=== PATIENT | male | born 1945 | race Caucasian/White ===

== ENCOUNTER 2018-12-16 15:40 | Inpatient (IN) | payer OTHER, MEDICARE ==
[~2018-12-16] VITALS: Ht 180.3 cm; Wt 97.1 kg
[~2018-12-16 15:40] MED LIST: Aspirin EC81 MG PO; BACL10 PO; CLON.5; FLUO10; Ketoconazole120 ML TOP; NORT25 PO; NORT50; PRAZ2 PO; RANI150 PO; TRAM50 PO; TRAV.004OP OD
[2018-12-16 16:10] LABS: BASOPHILS ABSOLUTE AUTO 0.06 K/mm3 (0.00-0.23); BASOPHILS PERCENT AUTO 1 % (0-2); EOSINOPHILS ABSOLUTE AUTO 0.15 K/mm3 (0.00-0.68); EOSINOPHILS PERCENT AUTO 2 % (0-6); Hematocrit 44.7 % (37.0-53.0); Hemoglobin 15.1 g/dL (13.5-17.5); IMMATURE GRAN PERCENT AUTO 5 % (0-1); LYMPHOCYTES ABSOLUTE AUTO 2.49 K/mm3 (0.84-5.20); LYMPHOCYTES PERCENT AUTO 32 % (21-46); MONOCYTES ABSOLUTE AUTO 0.87 K/mm3 (0.16-1.47); MONOCYTES PERCENT AUTO 11 % (4-13); Mean Corpuscular HGB Conc 33.8 g/dL (31.5-36.5); Mean Corpuscular Volume 98 fL (80-100); Mean Platelet Volume 10.5 fL (9.1-12.4); NEUTROPHILS ABSOLUTE AUTO 3.89 K/mm3 (1.96-9.15); NEUTROPHILS PERCENT AUTO 49 % (41-73); Platelet Count 223 K/mm3 (150-400); RDW Coefficient Variation 12.4 % (11.7-14.2); RDW Standard Deviation 44.5 fL (35.1-46.3); Red Blood Cell Count 4.57 M/mm3 (4.30-5.90); White Blood Cell Count 7.86 K/mm3 (4.00-11.30)
[2018-12-16 16:30] LABS: Alanine Aminotransfer (ALT/SGP 32 U/L (12-78); Albumin, Blood 3.9 g/dL (3.4-5.0); Alk Phos 82 U/L (50-136); Anion Gap 3 mmol/L (6-16); Aspartate Aminotrans (AST/SGOT 44 U/L (12-37); Bilirubin, Total 0.5 mg/dL (0.1-1.0); Blood Urea Nitrogen 17 mg/dL (8-24); Bun/Creatinine Ratio 17.7 (12.0-20.0); CO2, Blood 27 mmol/L (21-32); Chloride, Blood 108 mmol/L (98-108); Creatinine, Blood 0.96 mg/dL (0.60-1.20); Globulin, Blood 3.8 g/dL (2.2-4.0); Glomerular Filtration Rate >60 (60-); Glucose, Blood 105 mg/dL (70-99); Potassium, Blood 5.2 mmol/L (3.5-5.5); Sodium, Blood 138 mmol/L (136-145); Total Protein, Blood 7.7 g/dL (6.4-8.2)
[2018-12-16] MEDS ORDERED: LUBRICATING PL1 EACH BOTHEYES (18:28)
[2018-12-16] MEDS ORDERED: MELA3 PO (18:29)
[2018-12-16] MEDS ORDERED: LATA.005SO LEFTEYE (18:29)
[2018-12-16] MEDS ORDERED: ARTIFICIAL TEAR15 M1 BOTHEYES (18:29)
[2018-12-16] MEDS ORDERED: MULTI VITAMIN1 EACH PO (18:30)
[2018-12-16] MEDS ORDERED: Naproxen250 MG PO (18:33)
[2018-12-16] MEDS ORDERED: SERT25 PO (18:34)
[2018-12-16] MEDS ORDERED: Ranitidine HCl300 MG PO (18:34)
[2018-12-16] MEDS ORDERED: TRAZ100 PO (18:35)
--- NOTE | 2018-12-16 19:14 | NUR ---
pt to room from ed A&OX4. 02 SATS STABLE ON 2L NC. LUNGS DIM TO AUSCULTATION. CHEST TUBE TO R ANTERIOR CHEST WALL TO WALL SUCTION. DRAINING SS DRAINAGE. PT REPORTED PAIN 3-4 ON PAIN SCALE. CALL LIGHT IN REACH. REPORT GIVEN TO ONCOMING RN.
[2018-12-17 04:38] LABS: BASOPHILS ABSOLUTE AUTO 0.02 K/mm3 (0.00-0.23); BASOPHILS PERCENT AUTO 0 % (0-2); EOSINOPHILS ABSOLUTE AUTO 0.02 K/mm3 (0.00-0.68); EOSINOPHILS PERCENT AUTO 0 % (0-6); Hematocrit 40.4 % (37.0-53.0); Hemoglobin 13.5 g/dL (13.5-17.5); IMMATURE GRAN ABSOLUTE AUTO 0.11 K/mm3 (0.00-0.10); IMMATURE GRAN PERCENT AUTO 1 % (0-1); LYMPHOCYTES ABSOLUTE AUTO 1.28 K/mm3 (0.84-5.20); LYMPHOCYTES PERCENT AUTO 12 % (21-46); MONOCYTES PERCENT AUTO 14 % (4-13); Mean Corpuscular HGB Conc 33.4 g/dL (31.5-36.5); Mean Corpuscular Volume 99 fL (80-100); Mean Platelet Volume 9.8 fL (9.1-12.4); NEUTROPHILS ABSOLUTE AUTO 7.49 K/mm3 (1.96-9.15); NEUTROPHILS PERCENT AUTO 73 % (41-73); Platelet Count 201 K/mm3 (150-400); RDW Coefficient Variation 12.7 % (11.7-14.2); RDW Standard Deviation 45.8 fL (35.1-46.3); Red Blood Cell Count 4.09 M/mm3 (4.30-5.90); White Blood Cell Count 10.32 K/mm3 (4.00-11.30)
[2018-12-17 04:58] LABS: Anion Gap 5 mmol/L (6-16); Blood Urea Nitrogen 15 mg/dL (8-24); Bun/Creatinine Ratio 17.9 (12.0-20.0); CO2, Blood 28 mmol/L (21-32); Calcium, Blood 8.4 mg/dL (8.5-10.1); Chloride, Blood 106 mmol/L (98-108); Creatinine, Blood 0.84 mg/dL (0.60-1.20); Glomerular Filtration Rate >60 (60-); Glucose, Blood 111 mg/dL (70-99); Potassium, Blood 4.4 mmol/L (3.5-5.5); Sodium, Blood 139 mmol/L (136-145)
--- NOTE | 2018-12-17 05:46 | NUR ---
SHIFT SUMMARY PT NEW ADMIT YESTARDAY EVENING. AAOX4. DISCOMFORT CONTROLLED WITH 1MG IV DILAUDID X2 THIS SHIFT. NO NAUSEA/EMESIS. CHEST TUBE TO RIGHT CHEST WELL TO SUCTION, MODERATE AMOUNT SS DRAINAGE OUT. LUNG SOUNDS DIMINISHED T/O WITH SHALLOW BREATHING NOTED ON 2L VIA NC. CONTINUE TO ENCOURAGE DEEP BREATHING + REPOSITIONING TODAY TOLERATED + FLUIDS. PT RESTING WELL AT THIS TIME, NADN, WITH CALL LIGHT IN REACH.
--- NOTE | 2018-12-17 09:02 | NUR ---
PT TO IMAGING, TO WATER-SEAL FOR TRANSPORT PER ORDER.
--- NOTE | 2018-12-17 14:54 | NUR ---
DR CARTY WAS HERE RECENTLY, REPORTED TO PLACE CHEST TUBE TO WATER-SEAL.
--- NOTE | 2018-12-17 16:01 | NUR ---
PT REPORTED INCREASED PAIN AND "GETTING TIGHT". PT CHEST TUBE PLACED BACK TO WALL SUCTION AT SMALL BUBBLE. DR VEGA NOTIFIED. REPORTS TO LEAVE ON WALL SUCTION OVERNIGHT.
--- NOTE | 2018-12-17 17:43 | NUR ---
PT USED BSC THEN BACK TO BED. PT MED FOR PAIN.
--- NOTE | 2018-12-17 17:59 | NUR ---
SHIFT SUMMARY PT TOLERATING C.L.. PT REPORTS PASSING GAS. PT BEEN ASSISTED WITH ADL'S PRN. PT USING CALL LIGHT APPR. PT BEEN MED FOR PAIN. PT WAS UP TO CHAIR THIS AFTERNOON/EVENING. PT CHEST TUBE TO WALL SUCTION PER DR VEGA, BUBBLING AT SLOW BUBBLE, WNL. PT VOIDING. ENC DEEP BREATHING AND SITTING UP IN CHAIR.
--- NOTE | 2018-12-17 18:05 | NUR ---
PAS TO BLE IN PLACE.
--- NOTE | 2018-12-18 06:30 | NUR ---
SHIFT SUMMARY PT RESTED INTERMITTENTLY T/O NIGHT. AAOX4. DISCOMFORT CONTROLLED WITH 2 NORCO Q4P + DILAUDID GIVEN X1 FOR BREAKTHROUGH. NAUSEA CONTROLLED WITH ZOFRAN X1, NO EMESIS. CHEST TUBE TO ANTERIOR RIGHT CHEST WALL SECURE WITH 80cc RED DRAINAGE THIS SHIFT. LUNG SOUND DIMINISED T/O. ON RA, DENIES SOB AT REST. UP TO BED PAIN WITH LARGE AMOUNTS OF FLATUS OUT THIS SHIFT, NO BM. IVF PER ORDERS. PT RESTING WELL AT THIS TIME, NADN, WITH CALL LIGHT IN REACH.
--- NOTE | 2018-12-18 09:55 | NUR ---
PT BEEN TO IMAGING AND BACK EARLIER TODAY. PT CHEST TUBE TO WATER-SEAL. PT TOLERATING WELL.
--- NOTE | 2018-12-18 15:48 | NUR ---
SHIFT SUMMARY PT TOLERATING C.L.. PT VOIDING. PT BEEN ASSISTED WITH ADL'S PRN. PT BEEN GIVEN BED BATH WITH ASSIST. PT BEEN UP TO BSC WITH ASSIST. PT BEEN MED FOR PAIN. PT USING CALL LIGHT APPR. PT CONT TO HAVE CHEST TUBE IN PLACE. PT ON RA AT THIS TIME.
--- NOTE | 2018-12-18 17:53 | NUR ---
DR VEGA HERE TO SEE PT. REPORTS TO GIVE 21OO PEPCID DOSE NOW.
--- NOTE | 2018-12-19 04:41 | NUR ---
SHIFT SUMMARY PT A&0X4 W/VSS AND NO ACUTE CHANGES T/O SHIFT. CHEST TUBE TO RIGHT ANTERIOR CHEST WALL IN PLACE AND SET TO WATER SEAL W/80ML OF SS DRAINAGE. PT DENIES SOB OR DYSPNEA. SPO2 AT 97% ON 2L NC WHILE RESTING. REPORTS PAIN AT TOLERABLE LEVEL, MEDICATED PER EMAR AND REPOSITIONED PRN. UP TO BSC WITH 2 PERSON MODERATE ASSISTANCE. PLAN FOR XRAY THIS MORNING AND CLAMP CHEST TUBE AT 0500 PER ORDER. PT CURRENTLY SLEEPING IN BED WITH CALL LIGHT WITHIN REACH.
--- NOTE | 2018-12-19 06:21 | NUR ---
CHEST TUBE CLAMPED CHEST TUBE CLAMPED AT 0501 TODAY. PT TOLERATING IT WELL WITH EQUAL CHEST EXPANSION AND SPO2 AT 95% ON 2L NC. DENIES SOB OR DYSPNEA. WILL CONT. TO MONITOR.
--- NOTE | 2018-12-19 10:35 | NUR ---
DR. VEGA IN ROOM AT ABOUT 1020. CHEST TUBE REMOVED AT THIS TIME. PT TOLERATED WELL
--- NOTE | 2018-12-19 15:47 | NUR ---
PT IN RADIOLOGY AT THIS TIME FOR CHEST XRAY
--- NOTE | 2018-12-19 18:36 | NUR ---
SUMMARY: NO ACUTE CHANGE TODAY. VSS, A/O. PT HAS DONE WELL WITHOUT CHEST TUBE NO REPORT OF SOB, CHEST PAIN. BREATHS ARE EVEN AND UNLABORED. MEDICATED FOR PAIN PRN. PT HAS HARD TIME WITH MOBILITY TODAY, 2 ASSIST TO GET UP. VERY STIFF AND PAINFUL, ORDER FOR PT ADDED. DEEP BREATHE AND I.S. ENCOURAGED. ABLE TO WEAN OFF 02 TODAY, PT IS AT 96% ON RA. PLAN TO REPEAT CHEST XRAY IN AM. WILL PASS REPORT TO NOC RN
--- NOTE | 2018-12-20 06:01 | NUR ---
SHIFT SUMMARY PT AA0X4, VSS. PATIENT MEDICATED FOR PAIN PER EMAR. PAIN LOCATED IN RIBS AND RIGHT SHOULDER. PATIENT REPOSITIONING SELF IN BED. DENIES SOB OR DYSPNEA. BULKY DRESSING IN PLACE OVER CHEST TUBE REMOVAL SITE, CDI.
[2018-12-20 14:11] LABS: Mean Platelet Volume 9.8 fL (9.1-12.4); Platelet Count 197 K/mm3 (150-400)
--- NOTE | 2018-12-20 14:52 | NUR ---
PT RESTING COMFORTABLY IN BED. DENIES ANY NEEDS AT THIS TIME. CALL LIGHT IN REACH.
--- NOTE | 2018-12-20 15:05 | NUR ---
PT TO DAY SURGERY VIA HOSPITAL BED
--- NOTE | 2018-12-20 15:15 | NUR ---
INTO SDS VIA BED. NPO STATUS CONFIRMED. HISTORY AND ALLERGIES REVIEWED. DR. DURAN AT BEDSIDE. INFORMED CONSENT OBTAINED FOR EPIDURAL.
--- NOTE | 2018-12-20 16:29 | NUR ---
EPIDURAL CATHETER PLACED BY DR. DURAN. PT MED WITH TOTAL OF 150 MCG OF FENTANYL AND 3 MG VERSED IVP FOR PROCEDURE. EPIDURAL TEST INJECTION GIVEN BY DR. DURAN @ 8622. PT TOLERATED WELL. SEE RHYTHM STRIP RECORD FOR FREQUENT VS. FENTANYL AND BUPIVICAINE CONTINUOUS VIA EPIDURAL CATHETER INITIATED @ 1602. SEE EMAR. SBP TRENDING 90'S. HR 50'S. SATS>90% ON 2 LITERS NASAL CANULA. PT REPORTS THAT HE IS NO LONGER IN PAIN AT THIS TIME. REPORT PHONED TO HERI REYNA -PT TRANSFERED TO ROOM 224 VIA BED.
--- NOTE | 2018-12-20 16:45 | NUR ---
POST OP PT ARRIVES IN HOSPITAL BED. EPIDURAL IN PLACE. DENIES PAIN. RESP EVEN, CLEAR LUNGS, SLIGHTLY DIM IN BASES. WIGGLES TOES, PPP. DISCUSSED RISK OF URINARY RETENTION WITH POLYGRAPH OPERATOR SURGEON DUE TO ANESTIOLOGIST NOT AVAILABLE.
--- NOTE | 2018-12-21 03:28 | NUR ---
SHIFT SUMMARY RIB FX WITH R SIDED PNEUMOTHORAX. PT AA0X4, VSS. BULKY DRESSING OVER TUBE REMOVAL SITE ON UPPER RIGHT CHEST CDI. LUNG SOUNDS CLEAR BILATERALLY. PT ABLE TO TAKE DEEP BREATHS. DENIES PAIN DURING SHIFT WITH EPIDURAL. PATIENT REPORTS SENSATION THROUGHOUT. NUMBNESS EARLY IN SHIFT BETWEEN UPPER CHEST AND UPPER THIGH. PATIENT ABLE TO VOID. HAS BEEN USING URINAL. REPOSITIONS SELF IN BED AND TOLERATING PO WELL.
--- NOTE | 2018-12-21 17:53 | NUR ---
SUMMARY PATIENT REPORTS GOOD PAIN CONTROL WITH EPIDURAL. PATIENT BRIEFLY WITH 7/10 PAIN AFTER BATH AND GETTING OOB BUT REPORTS BASELINE PAIN LEVEL OF 2-3 HAS BEEN TYPICAL THROUGHOUT SHIFT. PATIENT WITH SOME SLIGHT DECREASED SENSATION T4-T9 WHICH HAS NOT CHANGED THROUGHOUT SHIFT. PATIENT VOIDING WITHOUT DIFFICULTY. ROCIO PO FOOD AND FLUIDS
--- NOTE | 2018-12-22 05:16 | NUR ---
SHIFT SUMMARY PT HAS BEEN BEDREST THIS SHIFT. MOVES SELF IN BED, USES URINAL. PAIN MANAGED WITH EPIDURAL. PT A/O X4, USES CALL LIGHT NEEDED. PT HAS BEEN RESTING QUIETLY MOST OF THE NIGHT.
--- NOTE | 2018-12-22 16:24 | NUR ---
PT TO IMAGING. PT TOLERATED GETTING SELF TO GURNEY WITH SBA.
--- NOTE | 2018-12-22 17:08 | NUR ---
SHIFT SUMMARY PT EATING AND DRINKING. PT ASSISTED WITH ADL'S PRN. PT UP TO CHAIR THIS AFTERNOON AFTER PT WAS TO IMAGING FOR XRAY. PT WAS GIVEN BED BATH THIS AFTERNOON. PT BEEN REPOSITIONED. PT ENC TO HAVE BOWEL CARE. PT REFUSING TO HAVE PRUNE JUICE. PT DID TAKE COLACE AND MIRALAX AND APPLE JUICE. REFUSING TO HAVE OTHER MEASURES, SUPPOSITORY OR ENEMA. PT HAS EPIDURAL IN PLACE. PT VOIDING AND PASSING GAS.
--- NOTE | 2018-12-23 05:59 | NUR ---
SHIFT SUMMARY: PENELOPE HAD HIS CHEST TUBE REMOVED 12/19/18. HE HAS AN EPIDURAL WHICH HE REPORTS IS PROVIDING GOOD PAIN CONTROL. HE IS USING THE URINAL WITHOUT DIFFICULTIES. HE IS TOLERATING PO INTAKE WELL. HE IS ABLE TO ADJUST HIS POSITION IN BED. HE HAS NOT HAD A BOWEL MOVEMENT THIS SHIFT. HE RESTED COMFORTABLY THROUGH MOST OF THE NIGHT. HE IS A&OX4. HE IS LYING IN BED WITH HIS CALL LIGHT IN REACH.
--- NOTE | 2018-12-23 09:54 | NUR ---
DR. DURAN ANESTHESIA DC'D EPIDURAL AT APPROX 5637.
--- NOTE | 2018-12-23 10:07 | NUR ---
[id number] DR DURAN HERE AND DC'D PATIENTS EPIDURAL, CATHETER INTACT
--- NOTE | 2018-12-23 15:31 | NUR ---
PATIENT REPORTS PAIN IS STAYING AT SAME LEVEL AFTER EPIDURAL REMOVED. PT DOZES WHEN LEFT UNDISTURBED. REPORT GIVEN TO TURNER CURTIS RN
--- NOTE | 2018-12-23 18:54 | NUR ---
dr galvan called ok to send urine for ua pt having cloudy urine with last 2 voids pt also reported lower pelvic pain
[2018-12-24 05:43] LABS: Source, Urine Clean Catch
[2018-12-24 05:46] LABS: Bilirubin, Urine Neg (Neg); Blood, Urine 3+ (Neg); Glucose Qualitative, Urine Neg (Neg); Ketones, Urine Neg (Neg); Leukocyte Esterase, Urine 3+ (Neg); Nitrite, Urine Pos (Neg); Protein, Urine 2+ (Neg); Specific Gravity, Urine 1.015 (1.003-1.022); Urobilinogen, Urine NORM (Normal)
[2018-12-24 05:58] LABS: Appearance, Urine Cloudy (Clear); Color, Urine Yellow (P-Yellow); White Blood Cells, Urine TNTC /hpf (0-5)
[2018-12-24 05:59] LABS: Bacteria Many /hpf; Squamous Epithelial Cells Not Seen /hpf (Few)
--- NOTE | 2018-12-24 07:41 | NUR ---
SUMMARY ASSUMED CARE OF PT @ 2400. PT APPEARING SLEEPING OFF AND ON TONIGHT. THIS AM WHEN MEDICATED PO FOR PAIN, PT STATED HE DID NOT SLEEPP MOST OF NIGHT. STATES WAS RESTING ON BED WITH EYES CLOSED BUT STATES DID NOT HEAR NURSES ENTER ROOM. ENCOURAGED TO CALL IF NOT SLEEPIG FOR NURSING CARE AND ASSIST FOR SLEEP. PT C/O R FLANK PAIN. REPORTS CHRONIC URINARY INFECTION. U/A OBTAINED PER DR ORDER.OFF GOING NURSE REPORTED DR WILL FOLLOW UP WITH U/A RESULTS AND ORDER ANTIBIOTIC IF +. PT URINE CLOUDY AND STRONGLY FOUL ODORED.ALTHOUGH, DENIES BURNING WITH URINATION.
--- NOTE | 2018-12-24 13:29 | NUR ---
DISCHARGE REPORT CALLED TO JÚNIOR AT [facility]. PT ALERT AND ORIENTED AT TIME OF DICHARGE. TRANSPORTED IN W/C.
== END 2018-12-24 13:15 | disposition home or self-care (01) | DRG 200 ==
LOC: ER 15:40 → SURS 16:20
PROVIDERS: Anesthesiology; Emergency Medicine; Surgery; ADMIT Surgery
PROC: 0W9900Z Drainage of Right Pleural Cavity with Drainage Device, Open Approach (ICD-10-PCS; principal; 2018-12-16)
DX: S27.2XXA Traumatic hemopneumothorax, initial encounter (principal); S32.019A Unspecified fracture of first lumbar vertebra, initial encounter for closed fracture; S32.029A Unspecified fracture of second lumbar vertebra, initial encounter for closed fracture; S32.039A Unspecified fracture of third lumbar vertebra, initial encounter for closed fracture; S32.049A Unspecified fracture of fourth lumbar vertebra, initial encounter for closed fracture; S22.41XA Multiple fractures of ribs, right side, initial encounter for closed fracture; N39.0 Urinary tract infection, site not specified; F43.10 Post-traumatic stress disorder, unspecified; K21.9 Gastro-esophageal reflux disease without esophagitis; W11.XXXA Fall on and from ladder, initial encounter; Y93.9 Activity, unspecified; Y92.9 Unspecified place or not applicable
CPT/HCPCS: 32551; 36415; 70450; 71045; 71046; 71260; 72125; 74177; 80048; 80053; 81001; 85025; 85049; 87077; 87086; 87186; 90471; 90714; 94762; 96374-59; 96376-59; 97110; 97162; 97530; 99285-25; A9270-GY; J1170; J1650; J1885; J2250; J2405; J2704; J3010; J7030; J7120; Q9967

== ENCOUNTER → 2020-11-29 | Outpatient (CLI) | payer OTHER, MEDICARE ==
[~2020-11-29] MED LIST changes: +ARTIFICIAL TEAR15 M1 BOTHEYES; +LATA.005SO LEFTEYE; +LUBRICATING PL1 EACH BOTHEYES; +MELA3 PO; +MULTI VITAMIN1 EACH PO; +Naproxen250 MG PO; +Ranitidine HCl300 MG PO; +SERT25 PO; +TRAZ100 PO
== END | disposition home or self-care (01) ==
LOC: LAB 10:45 → LAB SHORT 10:45
DX: R82.90 Unspecified abnormal findings in urine (principal)
CPT/HCPCS: 87077; 87086; 87186

== ENCOUNTER → 2021-08-04 | Outpatient (CLI) | payer OTHER | END | disposition home or self-care (01) | LOC: LAB SHORT 13:38 → LAB 13:38 | DX: R10.9 Unspecified abdominal pain (principal) | CPT/HCPCS: 87077; 87086; 87186 ==

== ENCOUNTER → 2021-12-09 | Outpatient (CLI) | payer OTHER | LOC: LAB SHORT 13:32 → LAB 13:32 | DX: M54.50 Low back pain, unspecified (principal) | CPT/HCPCS: 87077; 87086; 87186 ==

== ENCOUNTER → 2022-01-23 | Outpatient (CLI) | payer OTHER | END | disposition home or self-care (01) | LOC: LAB 14:50 → LAB SHORT 14:50 | DX: N39.0 Urinary tract infection, site not specified (principal) | CPT/HCPCS: 87077; 87086; 87186 ==

== ENCOUNTER 2024-08-06 15:10 | Emergency (ER) | payer OTHER ==
[~2024-08-06] VITALS: Ht 175.3 cm; Wt 99.8 kg
[2024-08-06 15:42] LABS: Source, Urine Clean Catch
[2024-08-06] MEDS ORDERED: Ondansetron HCl 2 MG / ML 2ML Vial IV ONE (15:45)
[2024-08-06 15:49] LABS: BASOPHILS ABSOLUTE AUTO 0.02 K/mm3 (0.00-0.23); BASOPHILS PERCENT AUTO 0 % (0-2); EOSINOPHILS PERCENT AUTO 0 % (0-6); Hematocrit 42.6 % (37.0-53.0); IMMATURE GRAN ABSOLUTE AUTO 0.04 K/mm3 (0.00-0.10); IMMATURE GRAN PERCENT AUTO 0 % (0-1); LYMPHOCYTES ABSOLUTE AUTO 0.88 K/mm3 (0.84-5.20); LYMPHOCYTES PERCENT AUTO 9 % (21-46); MONOCYTES ABSOLUTE AUTO 0.44 K/mm3 (0.16-1.47); MONOCYTES PERCENT AUTO 5 % (4-13); Mean Corpuscular HGB 32.2 pg (26.0-34.0); Mean Corpuscular HGB Conc 35.2 g/dL (31.5-36.5); Mean Corpuscular Volume 91 fL (80-100); Mean Platelet Volume 10.5 fL (9.1-12.4); NEUTROPHILS ABSOLUTE AUTO 8.31 K/mm3 (1.96-9.15); NEUTROPHILS PERCENT AUTO 86 % (41-73); Platelet Count 165 K/mm3 (150-400); RDW Coefficient Variation 12.5 % (11.7-14.2); RDW Standard Deviation 42.1 fL (35.1-46.3); Red Blood Cell Count 4.66 M/mm3 (4.30-5.90); White Blood Cell Count 9.69 K/mm3 (4.00-11.30)
[2024-08-06 15:55] LABS: Bilirubin, Urine Neg (Neg); Blood, Urine Neg (Neg); Glucose Qualitative, Urine Neg (Neg); Ketones, Urine 3+ (Neg); Leukocyte Esterase, Urine 1+ (Neg); Nitrite, Urine Neg (Neg); Protein, Urine 1+ (Neg); Specific Gravity, Urine 1.015 (1.003-1.022); Urobilinogen, Urine NORM (Normal)
[2024-08-06 16:16] LABS: Albumin, Blood 3.9 g/dL (3.4-5.0); Albumin/Globulin Ratio 1.3 (0.8-1.8); Bilirubin, Total 0.9 mg/dL (0.1-1.0); Calcium, Blood 8.9 mg/dL (8.5-10.1); Creatinine, Blood 0.7 mg/dL (0.60-1.20); Potassium, Blood 3.9 mmol/L (3.5-5.5); Total Protein, Blood 6.9 g/dL (6.4-8.2)
[2024-08-06 16:23] LABS: Appearance, Urine Hazy (Clear); Color, Urine Yellow (P-Yellow)
[2024-08-06 16:24] LABS: Amorphous Light (0-Heavy); Bacteria Mod /hpf; Mucus Mod (0-Heavy); Red Blood Cells, Urine 0-2 /hpf (0-2); Squamous Epithelial Cells Few /hpf (Few)
[2024-08-06] MEDS ORDERED: NS 1,000 ML IV SCH (16:25)
[2024-08-06 19:14] VITALS: BP 122/77
[2024-08-06] MEDS ORDERED: Meclizine HCl 25 MG Tab PO ONE (19:30)
[2024-08-06] MEDS ORDERED: Omeprazole 20 MG CapCR PO ONE (19:30)
[2024-08-06] MEDS ORDERED: MECL25 PO (19:49)
[2024-08-06] MEDS ORDERED: ONDA4ODT MM (19:49)
== END 2024-08-06 20:26 | disposition home or self-care (01) ==
LOC: ER 15:10
PROVIDERS: Student in an Organized Health Care Education/Training Program
DX: R42 Dizziness and giddiness (principal); R11.2 Nausea with vomiting, unspecified; F43.10 Post-traumatic stress disorder, unspecified; Z79.82 Long term (current) use of aspirin; Z79.899 Other long term (current) drug therapy; Z87.891 Personal history of nicotine dependence
CPT/HCPCS: 70450; 70496; 70498; 80053; 81001; 82550; 83690; 84484; 85025; 87086; 93005; 93010; 96374; 99284-25; A9270; J2405; J7030; Q9967